=== PATIENT | female | born 1980 | race African-American/Black ===

== ENCOUNTER 2023-02-09 05:58 | Emergency (ER) | payer OTHER ==
[2023-02-09 06:06] VITALS: BP 129/83; PULSE 66; RESP 18; TEMP 98.2; BMI 44.6
== END 2023-02-09 07:38 | disposition home or self-care (01) ==
LOC: JER 05:58
DX: S93.402A Sprain of unspecified ligament of left ankle, initial encounter (principal); W18.40XA Slipping, tripping and stumbling without falling, unspecified, initial encounter; Y92.9 Unspecified place or not applicable
CPT/HCPCS: 73610-TC-LT-FY; 99283-25

== ENCOUNTER 2024-04-17 14:55 | Emergency (ER) | payer OTHER ==
[2024-04-17 15:12] VITALS: TEMP 98.6; BMI 43.2
[2024-04-17 15:36] LABS: BASO % 0.8 % (0-2.0); EOS % 1.6 % (0-4.5); HEMATOCRIT 40.8 % (32.4-45.2); HEMOGLOBIN 13.3 GM/dL (10.7-15.3); MCH 27.5 pg (25.7-33.7); MCHC 32.6 g/dl (32.0-36.0); MEAN CELL VOLUME 84.2 fl (80-96); MEAN PLT VOLUME 7.9 fl (7.5-11.1); MONO % 7.7 % (3.8-10.2); NEUT % 57.9 % (42.8-82.8); PLATELET COUNT 300 10^3/uL (134-434); RBC 4.84 M/mm3 (3.60-5.2); RDW 15.4 % (11.6-15.6); WHITE BLOOD COUNT 6.3 K/mm3 (4.0-10.0)
[2024-04-17 15:48] LABS: INR 1.12 (0.83-1.09); PROTHROMBIN TIME (PATIENT) 12.6 SEC (9.7-13.0)
[2024-04-17 15:51] LABS: ACTIVATED PTT 28.1 SECONDS (25.2-36.5)
[2024-04-17 16:01] LABS: POTASSIUM 4.5 mmol/L (3.5-5.1)
[2024-04-17 16:02] LABS: CALCIUM 9.6 mg/dL (8.5-10.1)
[2024-04-17 16:03] LABS: ALBUMIN 3.7 g/dl (3.4-5.0); BLOOD UREA NITROGEN 14.2 mg/dL (7-18)
[2024-04-17 16:08] LABS: BILIRUBIN,TOTAL 0.5 mg/dL (0.2-1)
[2024-04-17 17:01] VITALS: BP 147/68; PULSE 61; RESP 20
== END 2024-04-17 17:02 | disposition home or self-care (01) ==
LOC: JER 14:55
DX: R07.89 Other chest pain (principal)
CPT/HCPCS: 36415; 71046-TC-FY; 80053; 84484; 84703; 85025; 85379; 85610; 85730; 93005; 93010; 99285-25